=== PATIENT | female | born 1955 | race Caucasian/White ===

== ENCOUNTER → 2017-09-13 | Outpatient (CLI) | payer BC ==
--- NOTE | 2017-09-13 15:36 | RADIOLOGY IMAGING REPORT ---
FACILITY: [facility] PATIENT NAME: Marni Miranda : 1955 MR: [id number] V: [id number] EXAM DATE: ORDERING PHYSICIAN: ANDREW POTTS TECHNOLOGIST: Location: [facility] [place] Patient: Marni Miranda : 1955 Visit/Account:[id number] Date of Sevice: 09/13/2017 Exam type: SINUSES MIN 3 VIEWS History: Sinusitis x3 weeks, worse on left Comparison: None. Findings: Three views of the paranasal sinuses demonstrate mucosal thickening over the maxillary sinuses. No d efinite air-fluid levels are demonstrated. Incidentally noted are postsurgical wires projecting over the posterior aspect of C1 to IMPRESSION: 1. There appears to be mucosal thickening of the maxillary sinuses. No definite air-fluid levels de monstrated. If patient's symptoms persist CT may be helpful Report Dictated By: Sydney Manuel MD at 09/13/2017 3:30 PM Report E-Signed By: Sydney Manuel MD at 09/13/2017 3:32 PM WSN:[email or web address]
== END ==
LOC: RAD 14:13
PROVIDERS: ATTEND Family Medicine
DX: J32.0 Chronic maxillary sinusitis (principal)
CPT/HCPCS: 70220

== ENCOUNTER 2018-11-25 16:07 | Emergency (ER) | payer BC ==
--- NOTE | 2018-11-25 16:08 | ER Report ---
History and Physical Time Seen By MD: 16:05 (VELIA SOLOMON DO) HPI/ROS CHIEF COMPLAINT: Fall off a horse HISTORY OF PRESENT ILLNESS: Patient is a 62-year-old female here with complaints of right sided shoulder, clavicular pain, rib pain after falling off of a horse approximately one and a half hours ago. Patient is neurovascularly intact in distal extremity. Denies chest pain, shortness breath. Patient denies loss of consciousness at time of event. Denies being on anticoagulation REVIEW OF SYSTEMS: Constitutional: No fever, no chills. Eyes: No discharge. ENT: No sore throat. Cardiovascular: No chest pain, no palpitations. Respiratory: No cough, no shortness of breath. Gastrointestinal: No abdominal pain, no vomiting. Genitourinary: No hematuria. Musculoskeletal: + Rate clavicular shoulder tenderness, no bony abnormalities, + right-sided hip tenderness Skin: No rashes. Neurological: No headache. Neurovascular exam intact in distal extremities (SOLOMONVELIA DO) Allergies: Coded Allergies: Penicillins (Verified Allergy, Intermediate, RASH, 11/25/18) Home Meds Active Scripts Oxycodone Hcl/Acetaminophen (PERCOCET 5-325 MG TABLET) 1 Each Tablet, 1 TAB PO Q4H PRN for PAIN, #15 TAB 0 Refills Prov:VELIA SOLOMON 11/25/18 Hx Smoking: No Smoking Status: Never Smoker Hx Alcohol Use: Yes (VELIA SOLOMON DO) Constitutional Vital Sign - Last 24 Hours 11/25/18 11/25/18 11/25/18 11/25/18 16:07 16:12 16:15 16:30 Temp 97.8 Pulse ??? 69 Resp 20 B/P (MAP) 118/80 118/80 (93) 126/83 (97) Pulse Ox 92 O2 Delivery Room Air 11/25/18 11/25/18 11/25/18 11/25/18 16:37 17:00 17:07 17:30 Pulse 78 65 Resp 21 16 B/P (MAP) 133/75 (94) 132/77 (95) Pulse Ox 93 11/25/18 11/25/18 11/25/18 11/25/18 17:37 18:00 18:30 19:00 Pulse 66 65 67 69 Resp 10 14 13 19 B/P (MAP) 127/73 (91) 122/73 (89) 89/66 (74) Pulse Ox 89 97 95 92 11/25/18 11/25/18 11/25/18 11/25/18 19:16 19:21 19:30 19:35 Pulse 71 68 Resp 10 13 B/P (MAP) 112/73 (86) 118/75 (89) Pulse Ox 90 93 11/25/18 11/25/18 11/25/18 11/25/18 19:40 20:00 20:10 20:30 Pulse 69 71 Resp 6 7 B/P (MAP) 120/68 (85) 100/65 (77) Pulse Ox 94 98 11/25/18 11/25/18 20:40 20:52 Pulse 78 Resp 12 B/P (MAP) 102/83 (89) Pulse Ox 98 (ZOHAIB ESPINOZA MD) Physical Exam General Appearance: The patient is alert, has no immediate need for airway protection and no signs of toxicity. No acute distress Eyes: Pupils equal and round no pallor or injection. ENT, Mouth: Mucous membranes are moist. Respiratory: There are no retractions, lungs are clear to auscultation. Cardiovascular: Regular rate and rhythm. Gastrointestinal: Abdomen is soft and non tender, no masses, bowel sounds normal. Neurological: Neurovascular exam in distal extremities, capillary refill less than 2 seconds Skin: Warm and dry, no rashes. Musculoskeletal: Neck is supple non tender. Tenderness on palpation of the right hip and right shoulder, right clavicle Right lower extremity tender with range of motion at the hip, right upper extremity tender range of motion of the shoulder and palpation of the right clavicle DIFFERENTIAL DIAGNOSIS: After history and physical exam differential diagnosis was considered for fracture, contusion, abrasion, dislocation, intra-abdominal injury (VELIA SOLOMON DO) Medical Decision Making Data Points Result Diagram: 11/25/18 1613 11/25/18 1613 Laboratory Hematology Test 11/25/18 16:13 White Blood Count 9.9 k/uL (4.5-11.0) Red Blood Count 4.59 M/uL (4.17-5.56) Hemoglobin 15.0 g/dL (12.0-16.0) Hematocrit 44.1 % (34.0-47.0) Mean Corpuscular Volume 96.2 fL (80.0-96.0) H Mean Corpuscular Hemoglobin 32.8 pg (26.0-33.0) Mean Corpuscular Hemoglobin Concent 34.1 g/dL (32.0-36.0) Red Cell Distribution Width 13.3 % (11.5-14.5) Platelet Count 232 K/uL (150-450) Mean Platelet Volume 9.1 fL (7.2-11.1) Neutrophils (%) (Auto) 67.9 % (39.4-72.5) Lymphocytes (%) (Auto) 20.1 % (17.6-49.6) Monocytes (%) (Auto) 7.6 % (4.1-12.4) Eosinophils (%) (Auto) 3.3 % (0.4-6.7) Basophils (%) (Auto) 1.1 % (0.3-1.4) Nucleated RBC Relative Count (auto) 0.1 /100WBC Neutrophils # (Auto) 6.7 K/uL (2.0-7.4) Lymphocytes # (Auto) 2.0 K/uL (1.3-3.6) Monocytes # (Auto) 0.8 K/uL (0.3-1.0) Eosinophils # (Auto) 0.3 K/uL (0.0-0.5) Basophils # (Auto) 0.1 K/uL (0.0-0.1) Nucleated RBC Absolute Count (auto) 0.01 K/uL Chemistry Test 11/25/18 16:13 Sodium Level 139 mmol/L (137-145) Potassium Level 4.0 mmol/L (3.5-5.0) Chloride Level 102 mmol/L (98-107) Carbon Dioxide Level 27 mmol/L (22-31) Blood Urea Nitrogen 11 mg/dl (7-18) Creatinine 0.60 mg/dl (0.52-1.04) Glomerular Filtration Rate Calc > 60.0 Random Glucose 113 mg/dl (75-110) Lactate 1.4 mmol/L (0.7-2.1) Calcium Level 9.7 mg/dl (8.4-10.2) Total Bilirubin 0.6 mg/dl (0.2-1.3) Aspartate Amino Transf (AST/SGOT) 56 U/L (0-35) Alanine Aminotransferase (ALT/SGPT) 50 U/L (0-56) Alkaline Phosphatase 72 U/L (0-126) Total Protein 7.4 g/dl (6.3-8.2) Albumin 4.4 g/dl (3.5-5.0) Lipase 99 U/L (23-300) Coagulation Test 11/25/18 16:13 Prothrombin Time 13.0 seconds (12.0-14.4) Prothromb Time International Ratio 0.98 Activated Partial Thromboplast Time 27 seconds (23-35) Urinalysis Test 11/25/18 16:37 Urine Color Straw Urine Clarity Clear Urine pH 6.0 pH (4.8-9.5) Urine Specific Leonore 1.006 Urine Protein Negative mg/dL (NEGATIVE) Urine Glucose (UA) Negative mg/dL (NEGATIVE) Urine Ketones Negative mg/dL (NEGATIVE) Urine Blood Negative (NEGATIVE) Urine Nitrite Negative (NEGATIVE) Urine Bilirubin Negative (NEGATIVE) Urine Urobilinogen Negative mg/dL (0.2-1.9) Urine Leukocyte Esterase Negative (NEGATIVE) Urine RBC <1 /HPF (0-2/HPF) Urine WBC 1 /HPF (0-5/HPF) Urine Squamous Epithelial Cells Few /LPF (</=FEW) Urine Bacteria Few /HPF (NONE-FEW) Urine Mucus None /HPF (NONE-FEW) (ZOHAIB ESPINOZA MD) EKG/Imaging Imaging Please see official radiology report (VELIA SOLOMON DO) Imaging CT BRAIN NO CONTRAST EXAMINATION: CT head/brain without contrast HISTORY: Fell off horse TECHNIQUE: Contiguous axial images were obtained from the skull base to the vertex without intravenous contrast. One of the following dose optimization techniques was utilized in the performance of this exam: Automated exposure control; adjustment of the mA and/or kV according to the patient's size; or use of an iterative reconstruction technique. Specific details can be referenced in the facility's radiology CT exam operational policy. COMPARISON STUDIES: None FINDINGS: Ventricles/sulci/fissures: Midline in position and normal in configuration. Masses/hemorrhage/midline shift: No hemorrhage. White matter: No white matter edema or contusion Ramirez-white differentiation: Negative Extra-axial spaces: No subdural or epidural fluid collections. No subarachnoid blood. Dural venous sinuses/arterial structures: Negative Skull base/calvarium: Postsurgical changes in the posterior aspect of the C1 vertebral body. Visualized mastoid air cells/paranasal sinuses: Negative IMPRESSION: 1.. Negative CT scan of the head for acute intracranial pathology. Report Dictated By: Eliot Plascencia MD at 11/25/2018 5:[address] VERTEBRA CERVICAL (NON CON) EXAMINATION: CT cervical spine with contrast Contrast amount: Trauma Additional pertinent history: None COMPARISON STUDIES: None TECHNIQUE: Axial images were obtained from the skull base through the upper thoracic spine with IV contrast administration. Coronal and sagittal reformatted images were obtained from the axial source data. One of the following dose optimization techniques was utilized in the performance of this exam: Automated exposure control; adjustment of the mA and/or kV according to the patient's size; or use of an iterative reconstruction technique. Specific details can be referenced in the facility's radiology CT exam operational policy. FINDINGS: Prevertebral soft tissues: Negative Alignment: Marked lordosis of the cervical spine maximally seen at the C5 level.. There is degenerative retrolisthesis of C4 with respect to C5 by approximately 2 mm. Similar retrolisthesis is seen of C5 with respect to C6. Vertebral bodies: No compression deformities or fractures. Posterior elements: Posterior cerclage wires seen at the C1-2 level. Posterior element fusion changes from the C1-C3 level. Mild facet arthropathy changes noted with moderate asymmetric left facet arthropathy at the C7-T1 level. Disc spaces: Significant disc degenerative changes and disc space narrowing at the C4-5 and to lesser extent C5-6 level. Visualized soft tissues anterior neck: Negative Visualized lung/mediastinum: Negative IMPRESSION: 1. Postoperative changes/fusion changes posteriorly in the upper cervical spine as described. 2. Advanced disc degenerative changes at the C4-5 and C5-6 levels. 3. No acute bony pathology. Report Dictated By: Eliot Plascencia MD at 11/25/2018 6:[address] CHEST ABDOMEN PELVIS W/CON EXAMINATION: CT Chest with Contrast CT Abdomen with Contrast CT Pelvis with Contrast HISTORY: fall TECHNIQUE: Spiral scan was obtained through the chest, abdomen and pelvis before and during injection of nonionic iodinated intravenous contrast. Contrast: 100 mL of IV Isovue 370. One of the following dose optimization techniques was utilized in the performance of this exam: Automated exposure control; adjustment of the mA and/or kV according to the patient's size; or use of an iterative reconstruction technique. Specific details can be referenced in the facility's radiology CT exam operational policy. COMPARISON STUDIES: none. FINDINGS: CHEST: Lungs / pleura: No pneumothorax. No consolidation. No effusions. Passive atelectatic lung changes noted at the lung bases. Mediastinum / shima: No mediastinal hemorrhage. Heart / pericardium: negative Vessels: No aortic dissection. Brachycephalic vessels normal. Pulmonary vasculature is unremarkable. Musculoskeletal / Body wall: Mild anterior wedging at T3 of approximately 30%. Endplate compression changes of approximately 20% involving the superior endplate of T12 associated with small Schmorl node change. Comminuted fracture of the distal third right clavicle with full body with offset Lymph node assessment: negative Lower neck: negative ABDOMEN AND PELVIS: Liver / biliary: No liver laceration. No perihepatic fluid. Pancreas: negative Spleen: Status post splenectomy. Scattered splenosis seen. Adrenal glands: negative Kidneys / retroperitoneum: No renal laceration or perinephric fluid or hemorrhage Pelvic structures: Uterus unremarkable. Venous congestion seen in the pelvis left greater than right. Bowel / peritoneum / mesenteries: No bowel inflammation. No colonic mass lesions. No interloop fluid. Vessels: negative Musculoskeletal / Body wall: Significant asymmetric prominence of the right gluteal musculature when compared to the left. There is scattered amorphic sasha cific changes throughout the musculature suggesting myositis ossificans no distinct acute hemorrhage is seen. Soft tissue stranding and edema changes noted in the adjacent soft tissues. Old healed fracture of the transverse process of L2 on the right. (Image 375 series 4 Lymph node assessment: negative IMPRESSION: 1. Right clavicular fracture. 2. Mild compression changes involving the T3 and T12 vertebral bodies which appear represent probable chronic change. Recommend clinical correlation. 3. 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 Superimposed acute traumatic soft tissue edema and muscular contusion suggested. 4. Status post splenectomy with splenosis. 5. Pelvic congestion left greater than right. 6. 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 Reformatted coronal and sagittal images were reviewed.One of the following dose optimization techniques was utilized in the performance of this exam: automated exposure cont rol; adjustment of the mA and/or kV according to the patient's size; or use of an iterative reconstruction technique. Specific details can be referenced in the facility's radiology CT exam operational policy. Findings: No acute or aggressive osseous abnormality. There are moderate osteoarthritic changes of the right hip. Moderate subcutaneous edema along the anterolateral margin of the right hip soft tissues suggesting mild soft tissue contusion. Mild right-sided SI joint degenerative changes. IMPRESSION: 1. No acute osseous abnormality of the right hip. 2. Degenerative changes as above. 3. Soft tissue overlying the lateral and anterolateral right hip soft tissues suggesting soft tissue contusion. Report Dictated By: Brijesh Santos MD at 11/25/2018 5:55 PM (ZOHAIB ESPINOZA MD) ED Course/Re-evaluation ED Course Patient is a 62-year-old female here with complaints of right hip, right shoulder, right clavicle and right rib pain after falling off of a horse approximately one half hours prior to arrival. Patient took ibuprofen for analgesia shortly after injury. Patient is neurovascularly intact, alert and oriented at time of evaluation, hemodynamically stable. E FAST exam negative. CT imaging of the head C-spine, chest abdomen pelvis and hip were completed due to mechanism. Patient was signed out to Dr. Espinoza at shift change pending imaging results. Decision to Disposition Date: Nov 25, 2018 Decision to Disposition Time: 18:00 (VELIA SOLOMON DO) Clinical Indication for ER IV: Hydration, IV Access ED Course I reviewed this patient with Dr. Solomon at shift change and assumed care. Patient bucked from horse, shoulder and right hip pain main problems. CT scan results returned showing clavicle fracture, 1st rib fracture, T3 anterior wedging, and right gluteal region hematoma. Discussed with patient and called Dr. Jha, general surgery, for further evaluation. Hematoma in the hip area does have some blushing suggesting active bleeding. Recommendation from Dr. Jha to transfer to [facility] for embolization. Patient is starting to have some dysesthesia from the pressure in the area from the hematoma. She is not on blood thinners. Took 3 ibuprofen earlier prior to coming to the hospital. Dr. Duque, trauma surgeon at [facility] accepted the patient for transfer. Pelvic binder placed. Further doses of pain medications. Past medical history of prior traumas including splenectomy, right shoulder surgery, C1-3 fusion, jaw dislocation Decision to Disposition Date: Nov 25, 2018 Decision to Disposition Time: 19:36 Transfer Facility Patient was transferred to [facility] via ambulance. The transfer was non-emergent, and was required because the capabilities of the receiving hospital. Consent for transfer was obtained from the patient. See EMTALA for transfer orders. (ZOHAIB ESPINOZA MD) Depart Departure Latest Vital Signs Vital Signs Date Time Temp Pulse Resp B/P (MAP) Pulse Ox O2 Delivery O2 Flow Rate FiO2 11/25/18 20:52 102/83 (89) 11/25/18 20:40 78 12 98 11/25/18 16:12 97.8 Room Air (ZOHAIB ESPINOZA MD) Impression: Primary Impression: Hematoma of right hip Additional Impressions: Clavicle fracture Right rib fracture Vertebral compression fracture Fall from horse Condition: Condition Unchanged Disposition: XFER TO [facility]UTE [facility]ARE [facility] Referrals: ANDREW POTTS DO (PCP) New Scripts Oxycodone Hcl/Acetaminophen (PERCOCET 5-325 MG TABLET) 1 Each Tablet 1 TAB PO Q4H PRN for PAIN, #15 TAB 0 Refills Prov: VELIA SOLOMON DO 11/25/18 Problem Qualifiers Primary Impression: Hematoma of right hip Encounter type: initial encounter Qualified Codes: S70.01XA - Contusion of right hip, initial encounter Additional Impressions: Clavicle fracture Encounter type: initial encounter Clavicle location: shaft Fracture type: closed Fracture alignment: displaced Laterality: right Qualified Codes: S42.021A - Displaced fracture of shaft of right clavicle, initial encounter for closed fracture Right rib fracture Encounter type: initial encounter Rib fracture type: single rib Fracture type: closed Qualified Codes: S22.31XA - Fracture of one rib, right side, initial encounter for closed fracture Vertebral compression fracture Encounter type: initial encounter Fracture of vertebra location: thoracic Thoracic vertebra fracture level: T3 Qualified Codes: S22.030A - Wedge compression fracture of third thoracic vertebra, initial encounter for closed fracture Fall from horse Encounter type: initial encounter Qualified Codes: V80.010A - Animal-rider injured by fall from or being thrown from horse in noncollision accident, initial encounter VELIA SOLOMON DO Nov 25, 2018 16:08 ZOHAIB ESPINOZA MD Nov 25, 2018 18:20
[2018-11-25] MEDS ORDERED: NS(*) 0.9% 1000 ML BAG 1,000 ML IV ONE (16:24)
[2018-11-25] MEDS ORDERED: fentaNYL CITR 100 MCG/2 ML AMP IVP ONE ×4 (16:25→21:00)
[2018-11-25] MEDS ORDERED: IOPAMIDOL 76% 100 ML INFUS BTL 100 ML ONE (16:40)
[2018-11-25 16:52] LABS: PLATELET COUNT, AUTOMATED 232 K/uL (150-450)
[2018-11-25 17:05] LABS: INR 0.98
--- NOTE | 2018-11-25 17:56 | RADIOLOGY IMAGING REPORT ---
FACILITY: [facility] PATIENT NAME: Marni Miranda : 1955 MR: [id number] V: [id number] EXAM DATE: ORDERING PHYSICIAN: VELIA MAE TECHNOLOGIST: Location: [facility] Patient: Marni Miranda : 1955 Visit/Account:[id number] Date of Sevice: 11/25/2018 CT BRAIN NO CONTRAST EXAMINATION: CT head/brain without contrast HISTORY: Fell off horse TECHNIQUE: Contiguous axial images were obtained from the skull base to the vertex without intravenou s contrast. One of the following dose optimization techniques was utilized in the performance of this exam: Autom ated exposure control; adjustment of the mA and/or kV according to the patient's size; or use of an i terative reconstruction technique. Specific details can be referenced in the facility's radiology C T exam operational policy. COMPARISON STUDIES: None FINDINGS: Ventricles/sulci/fissures: Midline in position and normal in configuration. Masses/hemorrhage/midline shift: No hemorrhage. White matter: No white matter edema or contusion Ramirez-white differentiation: Negative Extra-axial spaces: No subdural or epidural fluid collections. No subarachnoid blood. Dural venous sinuses/arterial structures: Negative Skull base/calvarium: Postsurgical changes in the posterior aspect of the C1 vertebral body. Visualized mastoid air cells/paranasal sinuses: Negative IMPRESSION: 1.. Negative CT scan of the head for acute intracranial pathology. Report Dictated By: Eliot Plascecnia MD at 11/25/2018 5:30 PM Report E-Signed By: Eliot Plascencia MD at 11/25/2018 5:49 PM WSN:[email or web address]
[2018-11-25] MEDS ORDERED: OXYC-865 PO (18:15)
--- NOTE | 2018-11-25 18:31 | RADIOLOGY IMAGING REPORT ---
FACILITY: [facility] PATIENT NAME: Marni Miranda : 1955 MR: [id number] V: [id number] EXAM DATE: ORDERING PHYSICIAN: VELIA MAE TECHNOLOGIST: Location: [facility] [place] Patient: Marni Miranda : 1955 Visit/Account:[id number] Date of Sevice: 11/25/2018 CT VERTEBRA CERVICAL (NON CON) EXAMINATION: CT cervical spine with contrast Contrast amount: Trauma Additional pertinent history: None COMPARISON STUDIES: None TECHNIQUE: Axial images were obtained from the skull base through the upper thoracic spine with IV co ntrast administration. Coronal and sagittal reformatted images were obtained from the axial source da ta. One of the following dose optimization techniques was utilized in the performance of this exam: Autom ated exposure control; adjustment of the mA and/or kV according to the patient's size; or use of an i terative reconstruction technique. Specific details can be referenced in the facility's radiology C T exam operational policy. FINDINGS: Prevertebral soft tissues: Negative Alignment: Marked lordosis of the cervical spine maximally seen at the C5 level.. There is degenerat yue retrolisthesis of C4 with respect to C5 by approximately 2 mm. Similar retrolisthesis is seen of C5 with respect to C6. Vertebral bodies: No compression deformities or fractures. Posterior elements: Posterior cerclage wires seen at the C1-2 level. Posterior element fusion change s from the C1-C3 level. Mild facet arthropathy changes noted with moderate asymmetric left facet art hropathy at the C7-T1 level. Disc spaces: Significant disc degenerative changes and disc space narrowing at the C4-5 and to lesser extent C5-6 level. Visualized soft tissues anterior neck: Negative Visualized lung/mediastinum: Negative IMPRESSION: 1. Postoperative changes/fusion changes posteriorly in the upper cervical spine as described. 2. Advanced disc degenerative changes at the C4-5 and C5-6 levels. 3. No acute bony pathology. Report Dictated By: Eliot Plascencia MD at 11/25/2018 6:16 PM Report E-Signed By: Eliot Plascencia MD at 11/25/2018 6:25 PM WSN:[email or web address]
[2018-11-25] MEDS ORDERED: ONDANSETRON 4 MG/2 ML VIAL IVP ONE (18:50)
--- NOTE | 2018-11-25 18:56 | RADIOLOGY IMAGING REPORT ---
FACILITY: [facility] [place] PATIENT NAME: Marni Miranda : 1955 MR: [id number] V: [id number] EXAM DATE: ORDERING PHYSICIAN: VELIA MAE TECHNOLOGIST: Location: [facility] Patient: Marni Miranda : 1955 Visit/Account:[id number] Date of Sevice: 11/25/2018 CT of the right hip without contrast Indication: Pain Comparison: None available Technique: Axial CT images were obtained through the right hip. Reformatted coronal and sagittal imag es were reviewed.One of the following dose optimization techniques was utilized in the performance of this exam: automated exposure control; adjustment of the mA and/or kV according to the patient's siz e; or use of an iterative reconstruction technique. Specific details [facility] be [facility] exam operational policy. Findings: No acute or aggressive osseous abnormality. There are moderate osteoarthritic changes of the right hip. Moderate subcutaneous edema along the anterolateral margin of the right hip soft tissues suggesting m ild soft tissue contusion. Mild right-sided SI joint degenerative changes. IMPRESSION: 1. No acute osseous abnormality of the right hip. 2. Degenerative changes as above. 3. Soft tissue overlying the lateral and anterolateral right hip soft tissues suggesting soft tissue contusion. Report Dictated By: Brijesh Santos MD at 11/25/2018 5:55 PM Report E-Signed By: Brijesh Santos MD at 11/25/2018 6:49 PM WSN:[email or web address]
--- NOTE | 2018-11-25 18:58 | RADIOLOGY IMAGING REPORT ---
FACILITY: [facility] PATIENT NAME: Marni Miranda : 1955 MR: [id number] V: [id number] EXAM DATE: ORDERING PHYSICIAN: VELIA MAE TECHNOLOGIST: Location: [facility] Patient: Marni Miranda : 1955 Visit/Account:[id number] Date of Sevice: 11/25/2018 ADDENDUM #1 ADDENDUM: The patient had a first rib fracture which was reported to the ER doctor at the time of the reading but was failed to be included in the impression. The density in the gluteus muscle was extravasated contrast representing a active bleeder in the musc le and not myositis within the large hematoma. This was discussed with the primary physician. Report Dictated By: Eliot Plascencia MD at 11/26/2018 3:49 PM Report E-Signed By: Eliot Plascencia MD at 11/26/2018 3:[address] CHEST ABDOMEN PELVIS W/CON EXAMINATION: CT Chest with Contrast CT Abdomen with Contrast CT Pelvis with Contrast HISTORY: fall TECHNIQUE: Spiral scan was obtained through the chest, abdomen and pelvis before and during injecti on of nonionic iodinated intravenous contrast. Contrast: 100 mL of IV Isovue 370. One of the following dose optimization techniques was utilized in the performance of this exam: Autom ated exposure control; adjustment of the mA and/or kV according to the patient's size; or use of an i terative reconstruction technique. Specific details can be referenced in the facility's radiology C T exam operational policy. COMPARISON STUDIES: none. FINDINGS: CHEST: Lungs / pleura: No pneumothorax. No consolidation. No effusions. Passive atelectatic lung changes noted at the lung bases. Mediastinum / shima: No mediastinal hemorrhage. Heart / pericardium: negative Vessels: No aortic dissection. Brachycephalic vessels normal. Pulmonary vasculature is unremarkable . Musculoskeletal / Body wall: Mild anterior wedging at T3 of approximately 30%. Endplate compression changes of approximately 20% involving the superior endplate of T12 associated with small Schmorl nod e change. Comminuted fracture of the distal third right clavicle with full body with offset Lymph node assessment: negative Lower neck: negative ABDOMEN AND PELVIS: Liver / biliary: No liver laceration. No perihepatic fluid. Pancreas: negative Spleen: Status post splenectomy. Scattered splenosis seen. Adrenal glands: negative Kidneys / retroperitoneum: No renal laceration or perinephric fluid or hemorrhage Pelvic structures: Uterus unremarkable. Venous congestion seen in the pelvis left greater than ri ght. Bowel / peritoneum / mesenteries: No bowel inflammation. No colonic mass lesions. No interloop flui d. Vessels: negative Musculoskeletal / Body wall: Significant asymmetric prominence of the right gluteal musculature when compared to the left. There is scattered amorphic calcific changes throughout the musculature sugges ting myositis ossificans no distinct acute hemorrhage is seen. Soft tissue stranding and edema sen es noted in the adjacent soft tissues. Old healed fracture of the transverse process of L2 on the ri ght. (Image 375 series 4 Lymph node assessment: negative IMPRESSION: 1. Right clavicular fracture. 2. Mild compression changes involving the T3 and T12 vertebral bodies which appear represent probabl e chronic change. Recommend clinical correlation. 3. 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 Superimposed acute traumatic soft tissue edema and musc ular contusion suggested. 4. Status post splenectomy with splenosis. 5. Pelvic congestion left greater than right. 6. 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
--- NOTE | 2018-11-25 20:19 | General Surgery Consultation ---
History of Present Illness Requesting Physician Dr. Espinoza Reason for Consult Trauma Chief Complaint Right shouldert and right buttock pain History of Present Illness This 62 year old healthy female was bucked off a horse this afternoon landing on her right side. No LOC. She was brought to [facility] where she was evaluated. She has remained hemodynamically normal. CT head neck, chest, abdomen, and pelvis revealed a displaced right clavicle fracture, right first rib fracture, ? T3 compression fracture, and a large right gluteal hematoma with contrast extravasation. A pelvic binder was placed and right arm sling. She was administered pain medication, and arrangements made to transfer her to [facility] with ground EMS. I discussed case with the accepting trauma surgeon Dr. Eleanor Duque. History Problems: (1) History of compression fracture of spine Status: Resolved (2) Hx of fracture of clavicle Status: Resolved (3) S/P splenectomy Home Meds Active Scripts Oxycodone Hcl/Acetaminophen (PERCOCET 5-325 MG TABLET) 1 Each Tablet, 1 TAB PO Q4H PRN for PAIN, #15 TAB 0 Refills Prov:VELIA MAE DO 11/25/18 Allergies: Coded Allergies: Penicillins (Verified Allergy, Intermediate, RASH, 11/25/18) Review of Systems All Systems Reviewed/Normal: Yes, Except as Noted Musculoskeletal: Pain, Impaired Mobility Exam Vital Signs Vital Signs Date Time Temp Pulse Resp B/P (MAP) Pulse Ox O2 Delivery O2 Flow Rate FiO2 11/25/18 19:30 118/75 (89) 11/25/18 19:21 71 10 90 11/25/18 16:12 97.8 Room Air General Appearance: Alert, Awake, Afebrile Neuro: No Gross deficits (though with some dysesthesia along lateral right thigh) Eyes: PERRLA ENT: Moist Mucous Membranes Neck: Other (no c spine tenderness) Cardiovascular: Normal Rhythm & Peripheral Pulses Respiratory: No Respiratory Distress, Clear to Auscultation Chest: No Tenderness GI: Abd Soft and Non-Tender Musculoskeletal: Other (Deformity, pain, tenderness, and crepitance right distal clavicle. ) Extremities: Other (Right gluteal hematoma) Psych: Alert & Oriented X3, Appropriate Mood & Affect Medical Decision Making Data Points Result Diagram: 11/25/18 1613 11/25/18 1613 Assessment and Plan Problems: (1) Fall from horse Status: Acute (2) Right rib fracture Status: Acute Assessment & Plan: will need a follow up CXR in 6-8 hours (3) Hematoma of right hip Status: Acute Assessment & Plan: In light of the significant pooling of contrast in the right gluteal hematoma I feel she requires transgfer to [facility] for angioembolization. Pelvic binder is in place. hemodynamically stable at this time. Arrangements have been made for transfer jud EMS. Dr. Eleanor Duque accepts patient in transfer. (4) Clavicle fracture Status: Acute Assessment & Plan: Displaced fracture. may benefit from ORIF. Ortho consult at receiving trauma center. (5) Vertebral compression fracture Status: Acute Assessment & Plan: This appears to be a minor compression and stable. Defer to receiving trauma center for treatment recommendation. Time Spent: > 30 min Venous Thromboembolism VTE Risk Physician Assess for VTE Risk: Yes Patient's VTE Risk: High VTE Diagnostic Test 2 Days Prior to Admit: No Antithrombotics Is Pt On Any Antithrombotics?: No Prophylaxis Tx Contraindicated Pharmacological Contraindicati: Active Bleeding Problem Qualifiers (1) Fall from horse: Encounter type: initial encounter Qualified Codes: V80.010A - Animal-rider injured by fall from or being thrown from horse in noncollision accident, initial encounter (2) Right rib fracture: Encounter type: initial encounter Rib fracture type: single rib Fracture type: closed Qualified Codes: S22.31XA - Fracture of one rib, right side, initial encounter for closed fracture (3) Hematoma of right hip: Encounter type: initial encounter Qualified Codes: S70.01XA - Contusion of right hip, initial encounter (4) Clavicle fracture: Encounter type: initial encounter Clavicle location: shaft Fracture type: closed Fracture alignment: displaced Laterality: right Qualified Codes: S42.021A - Displaced fracture of shaft of right clavicle, initial encounter for closed fracture (5) Vertebral compression fracture: Encounter type: initial encounter Fracture of vertebra location: thoracic Thoracic vertebra fracture level: T3 Qualified Codes: S22.030A - Wedge compression fracture of third thoracic vertebra, initial encounter for closed fracture ALEKSANDER BARGER MD Nov 25, 2018 20:19
[2018-11-25 20:52] VITALS: BP 102/83
[2018-11-25] MEDS ORDERED: fentaNYL CITR 100 MCG/2 ML AMP ONE (20:58)
== END 2018-11-25 21:06 | disposition short-term general hospital (02) ==
LOC: ER 16:10
DX: S70.01XA Contusion of right hip, initial encounter (principal); S42.021A Displaced fracture of shaft of right clavicle, initial encounter for closed fracture; S22.31XA Fracture of one rib, right side, initial encounter for closed fracture; S22.030A Wedge compression fracture of third thoracic vertebra, initial encounter for closed fracture; V80.010A Animal-rider injured by fall from or being thrown from horse in noncollision accident, initial encounter
CPT/HCPCS: 70450; 71260; 72125; 73700; 74177; 81001; 83605; 83690; 85025; 85610; 85730; 96374; 96376; 99285; J2405; J3010; J7030; L0172; Q9967; 82040; 82247; 82310; 82374; 82435; 82565; 82947; 84075; 84132; 84155; 84295; 84450; 84460; 84520

== ENCOUNTER → 2018-11-25 | Outpatient (CLI) | payer BC ==
[~2018-11-25] MED LIST: OXYC-865 PO
== END ==
LOC: AMB 20:44
PROVIDERS: ATTEND Nurse Practitioner
DX: S42.001A Fracture of unspecified part of right clavicle, initial encounter for closed fracture (principal); S22.39XB Fracture of one rib, unspecified side, initial encounter for open fracture; S27.9XXA Injury of unspecified intrathoracic organ, initial encounter; V80.010A Animal-rider injured by fall from or being thrown from horse in noncollision accident, initial encounter
CPT/HCPCS: A0425; A0428